=== PATIENT | female | born 1970 | race Caucasian/White ===

== ENCOUNTER 2018-02-22 17:36 | Inpatient (IN) | payer OTHER ==
[2018-02-22] MEDS ORDERED: Naloxone 0.4 MG/ML SDV IV PRN (18:50)
[2018-02-22] MEDS ORDERED: HYDROmorphone/Normal Saline 15 MG/30 ML PCA IV PRN (18:50)
[2018-02-22] MEDS: Pantoprazole 40 MG Vial IVPUSH SCH (19:27)
[2018-02-22] MEDS: Dextrose 5%-Lactated Ringers 1,000 ML IV SCH (19:28)
[2018-02-22] MEDS: Ondansetron 4 MG/2 ML SDV IVPUSH PRN (19:34)
[2018-02-23] MEDS: Dextrose 5%-Lactated Ringers 1,000 ML IV SCH ×3 (01:53→21:18)
[2018-02-23] MEDS: Ondansetron 4 MG/2 ML SDV IVPUSH PRN ×3 (01:57→21:29)
[2018-02-23] MEDS: Pantoprazole 40 MG Vial IVPUSH SCH ×2 (05:32→18:11)
[2018-02-23] MEDS ORDERED: fentaNYL 100 MCG/2 ML SDV ONE (07:11)
[2018-02-23] MEDS ORDERED: Midazolam 1 MG/ML 2 ML SDV ONE (07:11)
[2018-02-23] MEDS ORDERED: Propofol 200 MG/20 ML SDV ONE (07:11)
[2018-02-23] MEDS: Magnesium Sulfate/Water 2 GM in Premix Bag 1 BAG IV SCH ×3 (09:59→21:19)
[2018-02-23] MEDS: Sodium Ferric Gluconate Cmplex 250 MG in Sodium Chloride 0.9% 100 ML IV SCH (10:28)
[2018-02-23] MEDS: Lidocaine 2% 60 ML, Alum Hydrox/Mag Hydrox/Simeth 360 ML PO PRN ×4 (12:29→15:31)
[2018-02-23] MEDS: Metoclopramide 10 MG/2 ML SDV IV SCH ×2 (16:32→23:17)
[2018-02-23] MEDS: Pramipexole 0.25 MG Tab PO SCH (21:19)
[2018-02-24] MEDS: Pantoprazole 40 MG Vial IVPUSH SCH ×2 (05:09→17:44)
[2018-02-24] MEDS: Metoclopramide 10 MG/2 ML SDV IV SCH ×4 (05:09→22:12)
[2018-02-24] MEDS: Magnesium Sulfate/Water 2 GM in Premix Bag 1 BAG IV SCH ×4 (05:09→22:11)
[2018-02-24] MEDS: Dextrose 5%-Lactated Ringers 1,000 ML IV SCH ×3 (05:44→22:20)
--- NOTE | 2018-02-24 09:42 | CR ---
Abdomen 2V AP Flat Upright INDICATION: Abdominal pain. FINDINGS: There are postsurgical changes of the left upper quadrant consistent with a Ab-en-Y gastr ic bypass. The bowel gas pattern is unremarkable. There is no bowel distention. There are no patholog ic air-fluid levels. No free air is seen. No pathologic calcifications are demonstrated. There is briana dence of a right basilar infiltrate. IMPRESSION: 1. No acute findings in the abdomen. 2. Findings concerning for right basilar infiltrate. Correlate for pneumonia. Follow-up with a PA and lateral chest would be useful.
[2018-02-24] MEDS ORDERED: Sodium Chloride 0.9% 10 ML Syringe FLUSH PRN (10:55)
[2018-02-24] MEDS ORDERED: Iopamidol 612 MG/ML 150 ML Bottle IV PRN (10:55)
[2018-02-24] MEDS ORDERED: Sodium Chloride 0.9% 80 ML IV SCH (11:00)
[2018-02-24] MEDS ORDERED: Iohexol 300 MG/ML 30 ML Bottle PO ONE (11:11)
--- NOTE | 2018-02-24 11:52 | CT ---
Abdomen pelvis CT. History: Abdominal pain. Technique: IV and oral contrast were administered followed by axial imaging from the lung bases exten ding through the abdomen and pelvis. Coronal images were reconstructed. Total DLP: 1282. Comparison: 2 days prior. Findings: Limited evaluation of the lung bases demonstrates interval development of small pleural effusions jose roberto aterally. There has been development of dependent atelectasis and/or infiltrate of the posterior lowe r lobes. There are no focal hepatic lesions. There has been interval development of a small amount of free fluid at the jessica hepatis. There is mild pericholecystic fluid. The portal triads within the l iver appear prominent. The common bile duct appears mildly dilated measuring 11 mm. No stones are see n. The pancreas and adjacent tissues are unremarkable. The spleen is normal in size. The kidneys demo nstrate symmetric excretion of contrast. There is no hydronephrosis. There are postsurgical changes consistent with a Ab-en-Y gastric bypass. There is no large or small bowel distention. There is an IUD within the uterus. There is interval mild increase of free fluid i n the cul-de-sac. There continues to be a cystic structure anterior to the uterus measuring 4.6 cm. Impression: 1. Bibasilar infiltrate and or atelectasis. There are small bilateral pleural effusions which are new . 2. Evidence for mild periportal edema. There is a small amount of fluid at the jessica hepatis. There i s evidence for pericholecystic fluid. There is no wall thickening of the gallbladder. A gallbladder u ltrasound may provide additional information. 3. Cystic structure anterior to the uterine fundus. The finding may reflect an ovarian cyst. A promin ent bladder diverticulum cannot be excluded. 4. Mild interval increase of cul-de-sac fluid. 5. Prior gastric bypass procedure. No bowel distention.
[2018-02-24] MEDS: Sodium Ferric Gluconate Cmplex 250 MG in Sodium Chloride 0.9% 100 ML IV SCH (12:39)
--- NOTE | 2018-02-24 15:11 | HP ---
ADMISSION DIAGNOSES: 1. 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 2. Unspecified surgical malabsorption. 3. B12 deficiency. HISTORY OF PRESENT ILLNESS: Stephanie was a direct admit from [place], stating that she had severe midepigastric abdominal pain. Went into the [place] ER, was admitted, and then transferred to [place], [place]. She states that the pain comes in waves, sharp, crampy, and associated with nausea, but no vomiting. BM 2 days ago. Reports that she has never had anything like this before. REVIEW OF SYSTEMS: CONSTITUTIONAL: Denies any fever, chills, night sweats, or fatigue. Weight has been stable. NECK: Negative. CHEST: No chest pain, shortness of breath, fast or irregular heartbeat. LUNGS: No cough. : No UTI signs and symptoms. EXTREMITIES: No joint pain or swelling. NEURO: No headaches, dizziness, or loss of coordination. SKIN: No rash. PSYCHIATRIC: No depression, anxiety, or insomnia. Remainder of review of systems negative for any pertinent positives and negatives. PHYSICAL EXAMINATION: GENERAL: Stephanie Barr is a 47-year-old female. She had an EGD yesterday, which showed mild inflammation in the gastric pouch and into the adjacent Ab limb. VITAL SIGNS: Height is 5 feet 4 inches. Weight is 191 pounds. TPR is 97.3, 69, 16, and blood pressure 99/55. HEENT: Negative. NECK: Supple. HEART: Regular rate and rhythm. LUNGS: Clear. ABDOMEN: Tender in the midepigastric area, radiating a little bit to the left. EXTREMITIES: Without peripheral edema. NEURO: Intact. PSYCHIATRIC: Mood and affect appropriate. ASSESSMENT: 1. Mid-epigastric abdominal pain. 2. Status post EGD showing mild inflammation and gastritis. 3. Status post Ab-en-Y gastric bypass surgery. 4. Unspecified surgical malabsorption. 5. B12 deficiency. PLAN: Check CT of abdomen and pelvis with IV and oral contrast using 200 mL of water- soluble oral contrast. Doris Rodriguez MD, when CT is completed. Debora Lopez PA-C /[id number]
[2018-02-24] MEDS ORDERED: Acetaminophen 325 MG Tab PO PRN (16:13)
[2018-02-24] MEDS: Pramipexole 0.25 MG Tab PO SCH (22:08)
[2018-02-25] MEDS: Magnesium Sulfate/Water 2 GM in Premix Bag 1 BAG IV SCH (03:53)
[2018-02-25] MEDS: Metoclopramide 10 MG/2 ML SDV IV SCH ×2 (05:37→10:57)
[2018-02-25] MEDS: Pantoprazole 40 MG Vial IVPUSH SCH (05:38)
[2018-02-25] MEDS: Dextrose 5%-Lactated Ringers 1,000 ML IV SCH ×2 (06:27→22:12)
[2018-02-25] MEDS ORDERED: cefOXitin 2 GM in Sodium Chloride 0.9% 50 ML IV ONE ×2 (10:00→11:45)
[2018-02-25] MEDS ORDERED: Ketamine 500 MG/5 ML MDV IV SCH (10:00)
[2018-02-25] MEDS ORDERED: Ropivacaine 44 ML, Dexamethasone 8 MG, EPINEPHrine 0.4 MG, Sodium Chloride 0.9% 33.6 ML NERVRT SCH ×4 (10:00)
--- NOTE | 2018-02-25 10:38 | PN ---
DATE OF SERVICE: 02/25/2018 SUBJECTIVE: Stephanie is n.p.o. She will be having a laparoscopic cholecystectomy today. She is less nauseated. 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 REVIEW OF SYSTEMS: Remainder of review of systems is negative for any pertinent positives and negatives. OBJECTIVE: GENERAL: Stephanie Barr is a 47-year-old female. She is alert orientated, color pale. VITAL SIGNS: TPR 98.1, 66, 16, blood pressure 95/58. HEENT: Negative. NECK: Supple. HEART: Regular rate and rhythm. LUNGS: Clear. ABDOMEN: Tenderness remains in the right upper quadrant. EXTREMITIES: Without peripheral edema. ASSESSMENT: Cholecystitis. PLAN: Orders to be written postoperatively. Debora Lopez PA-C /[id number]
[2018-02-25] MEDS ORDERED: Bupivacaine 0.5%/EPINEPHrine 1:200,000 50 ML MDV ONE (10:58)
--- NOTE | 2018-02-25 11:26 | OR ---
DATE OF PROCEDURE: 02/23/2018 PREOPERATIVE DIAGNOSIS: Upper abdominal pain, status post previous Ab-en-Y gastric bypass. POSTOPERATIVE DIAGNOSIS: Mild inflammation of gastric pouch and adjacent Ab limb. OPERATIVE PROCEDURE: Upper GI endoscopy with biopsies of gastric pouch for CLOtest. ANESTHESIA: IV sedation. INDICATIONS FOR PROCEDURE: The patient was transferred yesterday evening from [place] with a diagnosis of upper abdominal pain, status post previous Ab-en-Y gastric bypass. CT scan was obtained also, which was otherwise unremarkable, and the patient was started on Protonix while in [place]. Plan is to proceed with upper GI endoscopy with biopsies and/or dilation as indicated. Potential risks including bleeding and perforation were discussed, and the patient wishes to proceed. PROCEDURE IN DETAIL: The patient was taken to the operating room and placed in a left lateral decubitus position. IV sedation was administered, after which the upper GI endoscope was passed orally through the length of the esophagus and into the gastric pouch and from there through the gastrojejunostomy roughly 20 cm into the Ab limb. Findings included normal esophagus and EG junction area. Within the gastric pouch and the Ab limb immediately adjacent to gastrojejunostomy, there were some mild redness and friability of the mucosa. No true ulcers were seen or erosions, and no blood or bleeding was seen. There was no stricture at the gastrojejunostomy. The remainder of the Ab limb was unremarkable. At this point, biopsies were obtained from the gastric pouch and sent for CLOtest for H pylori. Minimal bleeding from the biopsy site was seen, and the procedure was then concluded. The patient was taken to the recovery room in satisfactory condition. Plan at this point will be to see how the patient does over the next 24 hours with the PPI use. It is possible that she had had a more aggressive inflammatory picture earlier and is already beginning to heal with more than 24 hours of proton pump inhibitor use since her admission to [place]. If tomorrow she is clinically not improving, we will need to begin further workup including probably repeat CT scan. We will obtain some additional labs in the morning including lipase and amylase to make sure we are not missing any pancreatitis in this case as well. Byrno Rodriguez MD /[id number]
--- NOTE | 2018-02-25 11:50 | PN ---
DATE OF SERVICE: 02/23/2018 The patient was admitted after being transferred from [place] overnight. She is status post previous Ab-en-Y gastric bypass, who up until recently had been doing very well. She presented to the [facility], was admitted with epigastric pain and nausea. She was started on Protonix and was transferred here last night for further evaluation. A CAT scan of the abdomen was done and was unremarkable. Examination shows the patient to be afebrile with stable vital signs. The lungs are clear. Abdomen shows some moderate discomfort in the epigastrium, otherwise is unremarkable. Labs show a white count of 6500, hemoglobin of 10.3. Chemistries are unremarkable other than slightly low magnesium, which will be supplemented after the upper endoscopy. The plan at this point will be to proceed with an upper endoscopy. Hopefully, we will find something easily manageable such as marginal ulcer. If not, we will have to step back and reevaluate the workup at that point. Byron Rodriguez MD /[id number]
[2018-02-25] MEDS: Ampicillin/Sulbactam Na 3 GM in Sodium Chloride 0.9% 100 ML IV SCH ×2 (13:18→20:01)
[2018-02-25] MEDS ORDERED: fentaNYL 100 MCG/2 ML SDV IVPUSH ONE (13:28)
[2018-02-25] MEDS ORDERED: hydrOXYzine HCl 100 MG/2 ML SDV IM ONE (13:28)
[2018-02-25] MEDS: Acetaminophen/HYDROcodone 325-5 MG Tab PO PRN (20:03)
[2018-02-25] MEDS: Pramipexole 0.25 MG Tab PO SCH (21:33)
[2018-02-26] MEDS: Acetaminophen/HYDROcodone 325-5 MG Tab PO PRN ×6 (00:08→22:56)
[2018-02-26] MEDS: Ampicillin/Sulbactam Na 3 GM in Sodium Chloride 0.9% 100 ML IV SCH ×4 (01:07→19:44)
[2018-02-26] MEDS: Pantoprazole 40 MG Vial IVPUSH SCH (05:40)
[2018-02-26] MEDS ORDERED: Magnesium Hydroxide 400 MG/5 ML Susp 30 ML Cup PO ONE (09:00)
[2018-02-26] MEDS: Dextrose 5%-Lactated Ringers 1,000 ML IV SCH ×2 (09:19→21:07)
[2018-02-26] MEDS ORDERED: Bisacodyl 5 MG Tab PO ONE (10:00)
--- NOTE | 2018-02-26 14:08 | PN ---
DATE OF SERVICE: 02/26/2018 SUBJECTIVE: Stephanie is postop day #1. She said she is feeling better. She has incisional pain. Has not had a bowel movement since 02/19/2018. REVIEW OF SYSTEMS: Remainder of review of systems negative for any pertinent positives and negatives. OBJECTIVE: GENERAL: Stephanie Barr is a 47-year-old female. She is alert and orientated. SKIN: Warm and dry. Color pale. VITAL SIGNS: TPR 97.8, 73, 16, and blood pressure 110/71. HEENT: Negative. NECK: Supple. HEART: Regular rate and rhythm. LUNGS: Clear. ABDOMEN: Dressings dry and intact. Abdominal binder is on. EXTREMITIES: Without peripheral edema. ASSESSMENT: Laparoscopic cholecystectomy with drainage of pericholecystic fluid. Date of surgery, 02/25/2018. PLAN: 1. Discontinue PLANT CONTROL AIDE and continuous pulse ox. 2. She is already on the [place] and it is holding her pain. 3. Discontinue KAMI drain. 4. Milk of magnesia 30 mL and followed by Dulcolax 2 oral tabs, 1 hour after the milk of magnesia. 5. Good pulmonary toilet. 6. We will evaluate p.r.n. or in a.m. Debora Lopez PA-C /[id number]
[2018-02-26] MEDS ORDERED: Bisacodyl 10 MG Supp RECTAL PRN (17:52)
[2018-02-26] MEDS: Pramipexole 0.25 MG Tab PO SCH (21:09)
[2018-02-27] MEDS: Ampicillin/Sulbactam Na 3 GM in Sodium Chloride 0.9% 100 ML IV SCH ×2 (01:27→08:07)
[2018-02-27] MEDS: Acetaminophen/HYDROcodone 325-5 MG Tab PO PRN ×2 (04:22→09:10)
[2018-02-27] MEDS: Pantoprazole 40 MG Vial IVPUSH SCH (06:22)
--- NOTE | 2018-03-01 15:09 | OR ---
DATE OF PROCEDURE: 02/25/2018 PREOPERATIVE DIAGNOSIS: Subacute cholecystitis and cholelithiasis. POSTOPERATIVE DIAGNOSES: 1. Subacute and chronic cholecystitis and cholelithiasis with purulent pericholecystic fluid collection. 2. 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 OPERATIVE PROCEDURES: 1. Diagnostic laparoscopy with lysis of adhesions. a. Resection of small bowel biliopancreatic limb stump (61840). b. Cholecystectomy (41885). c. Drainage of purulent pericholecystic fluid collection ([id number]). ANESTHESIA: General. BEAN PICKER: Debora Lopez PA-C INDICATION FOR PROCEDURE: A 47-year-old presenting with increasing abdominal pain over the weekend after dilation became evident that the patient had a smoldering cholecystitis. The plan is to proceed to with diagnostic laparoscopy to look at the small bowel to make sure there is no component of partial small bowel obstruction as well as to proceed with cholecystectomy. Potential risks of the procedure including bleeding, infection, injury to underlying viscera, problems with stones migrating in the common bile duct requiring additional procedures for correction as well as possibility of cardiopulmonary, septic, or hemorrhagic complications leading to were discussed, and the patient wishes to proceed. DETAILS OF PROCEDURE: The patient was taken to the operating room and placed in a supine position after general endotracheal anesthesia was induced and converted to a lithotomy position and the abdomen prepped and draped. Following this in the left lower quadrant, a transverse incision was made. The peritoneal cavity entered under direct vision with Optiview trocar and inflated to 15 mmHg pressure with CO2. Laparoscope was inserted. No underlying trocar insertion site injuries were seen. Following this, three additional trocars were placed across the right and left mid abdomen. Bilateral subcostal transversus abdominis plane blocks were then placed using standard solution and direct visualization of the needle in the correct plane of laparoscopic vantage point. At this point, the small bowel was run. The patient was noted to have where the Ab limb entered the jejunojejunostomy. This appeared to be related to traction of the biliopancreatic limb mesentery pulling the anastomosis leftward and posteriorly. Given this, the excess biliopancreatic limb was divided with a PAM stapler and the mesentery divided with Harmonic scalpel and that specimen delivered from the field. Some additional sutures of 0 Ethibond sutures were then used to help keep the anastomosis in a straight line position as well. Attention was then taken to the gallbladder. Gallbladder noted to be quite edematous and thickened. As one retracted anteriorly, a purulent collection was noted behind the gallbladder. Cultures of this were obtained. This was associated with localized peritonitis in that region. The gallbladder was then continued to be retracted and traction began on the gallbladder neck, continued around the gallbladder neck, cystic duct junction. Once that area as well as well as adjacent cystic artery were clearly identified, both structures were clipped 3 times proximally and once distally and the gallbladder dissected off the gallbladder bed using Harmonic scalpel, delivered through the epigastric trocar site, contained multiple small black stones. The area of dissection was then inspected. A Sunny-Paige drain was then taken out through the right lateral trocar site and placed into the area of the gallbladder bed where the purulent fluid collection was present. The trocars were then sequentially removed. The fascia at the 12 mm sites was closed with 0 Vicryl stitch and the skin with 4-0 Vicryl skin stitch. Dressing was applied. The patient was taken to the recovery room in satisfactory condition. Physician occupational therapist assistant, Debora Lopez, played an essential role in assisting in this case, helping to retract structures as needed, as well as positioned the patient, as well as suturing and cutting sutures when indicated. Her presence improved patient safety and decreased the operative time. Byron Rodriguez MD /[id number]
--- NOTE | 2018-03-01 15:39 | DISCH ---
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 DISCHARGE DIAGNOSES: Upper GI with biopsy pouch CLOtest. POSTOPERATIVE DIAGNOSES: 1. Mild inflammation, gastric pouch and adjacent Ab limb, date 02/23/2018. 2. Diagnostic laparoscopy with lysis of adhesions, resection of small bowel biliary pancreatic limb stump, cholecystectomy, and drainage of purulent pericholecystic fluid collection for subacute cholecystitis, cholelithiasis, and purulent pericholecystic fluid collection. Jejunostomy distorted by traction on the biliary pancreatic limb stump. Date of surgery 02/25/2018. HISTORY: Stephanie Barr is a 47-year-old female who was transferred from [facility] for mid epigastric and upper abdominal pain. After preoperative evaluation and discussion of possible risks and possible complications, she wished to proceed with surgical procedure. HOSPITAL COURSE: Stephanie had her esophagogastroduodenoscopy on 02/23/2018 and a diagnostic laparoscopy for above procedure on 02/25/2018. She had no operative complications on postop day 1, felt much better. Postop pain was managed. She was started on a diet, given bowel stimulation. On postop day 2, stable to be discharged to home. PHYSICAL EXAMINATION: GENERAL: Stephanie Barr is a 47-year-old female. VITAL SIGNS: Height is 5 feet 4.9 inches, weight is 191 pounds. TPR is 97.4, 79, 16, blood pressure 104/74. HEENT: Negative. NECK: Supple. HEART: Regular rate and rhythm. LUNGS: Clear. ABDOMEN: Dressings dry and intact. Sutures look good. KAMI drain was removed yesterday. Soft, minimally tender. EXTREMITIES: Without peripheral edema. DISPOSITION: Discharged to home. CONDITION: Stable and improving. FOLLOWUP APPOINTMENT: Debora Lopez PA-C, on 03/09/2018 at 10:00 a.m. She will need a pelvic ultrasound in 1 month for ovarian cyst. HOME MEDICATIONS: Hydrocodone-acetaminophen/[place] 5/325 mg one every 4 hours p.r.n. pain, #40; and she is to resume her home medications of B complex one daily; vitamin D3 one daily; folic acid 800 mcg daily; iron tablet one tablet daily; multivitamin 1 daily, we will increase that to b.i.d.; omeprazole 40 mg daily; and sennoside 8.6 mg daily. DISCHARGE DIET: Usual diet as tolerated. Drink 8 to 10 glasses of water a day. ACTIVITY: No lifting greater than 10 pounds for 2 weeks. Walk 6 times daily inside your home, gradually increasing. Driving after discharge; do not drive on pain medication. Shower/bathing, may shower. No tub bathing, swimming. DISCHARGE INSTRUCTIONS: Notify provider if any fever, increased pain, swelling, redness, drainage, nausea, or vomiting. Keep site clean and dry. Use incentive spirometer 10 times every hour while awake.
== END 2018-02-27 10:30 | disposition home or self-care (01) | DRG 356 ==
LOC: JP.ICU 17:36 → JP.MS 02-23 14:00
PROVIDERS: ADMIT Surgery; ATTEND Surgery
PROC: 0DB68ZX Excision of Stomach, Via Natural or Artificial Opening Endoscopic, Diagnostic (ICD-10-PCS; principal; 2018-02-23)
PROC: 0FT44ZZ Resection of Gallbladder, Percutaneous Endoscopic Approach (ICD-10-PCS; 2018-02-25)
PROC: 3E0T3BZ Introduction of Anesthetic Agent into Peripheral Nerves and Plexi, Percutaneous Approach (ICD-10-PCS; 2018-02-25)
PROC: 0DB94ZX Excision of Duodenum, Percutaneous Endoscopic Approach, Diagnostic (ICD-10-PCS; 2018-02-25)
PROC: 0DBV4ZX Excision of Mesentery, Percutaneous Endoscopic Approach, Diagnostic (ICD-10-PCS; 2018-02-25)
DX: K29.70 Gastritis, unspecified, without bleeding (principal); K65.8 Other peritonitis; K80.12 Calculus of gallbladder with acute and chronic cholecystitis without obstruction; R18.8 Other ascites; K59.8 Other specified functional intestinal disorders; E55.9 Vitamin D deficiency, unspecified; G25.81 Restless legs syndrome; Z98.84 Bariatric surgery status; Z98.0 Intestinal bypass and anastomosis status; E53.8 Deficiency of other specified B group vitamins
CPT/HCPCS: 36415; 74019; 74019-26; 74177; 74177-26; 80053; 82150; 82247; 82607; 82728; 82746; 83690; 83735; 84075; 84100; 85027; 87070; 87075; 87081; 87205; 88304; 88307; 94762; A9270-GY; C9113; J0171; J0295; J0694; J1100; J1170; J2250; J2405; J2704; J2765; J2795; J2916; J3010; J3410; J3475; J7030; J7042; J7050; Q9965